=== PATIENT | female | born 1980 ===

== ENCOUNTER 2016-06-07 17:26 | Emergency (ER) | payer OTHER ==
--- NOTE | 2016-06-14 17:50 | ER ---
ADMIT: 06/07/2016 RM/LOC: ER [facility] MR#: [id number] [address] [id number] FOSTER WATSON [address] [place] [id number] Emergency Room Report SEX: F AGE: 35 : 1980 DATE: 06/07/2016 ADDENDUM: This patient comes into the ER because she is having pain on the left side of her abdomen. She is in her first trimester. She has been nauseated and vomiting. The pain started on the left side today, so she comes into the ER. She is unsure if the vomiting is caused by the pain in the left side or if it is due to having morning sickness. On physical exam, she is tender in the left lower quadrant. Bimanual exam was really negative for pain in the left adnexa and no masses palpated. Urinalysis had +2 ketones. We were unable to auscultate heart tones, but her beta quant was 66,000. Her urinalysis was negative for infection. Her ultrasound showed a 7 mm left ovarian cyst, and an IUP at 9 weeks and 2 days. She was given Tylenol and a liter of normal saline that was later repeated and Zofran. She is to follow up with Dr. Olguin tomorrow if not feeling better. Please see my T-sheet. JUSTICE Mckeon / Taiwo Lovell MD / yancyl JOB #: [id number] CC: Taiwo Lovell MD, Attending Physician Cassandra Olguin MD, Family Physician
[2017-01-05] MEDS ORDERED: COLACE-DPS100 MG PO (10:55)
[2017-01-05] MEDS ORDERED: PRENATAL VITAM1 EAC9 PO (10:55)
[2017-01-05] MEDS ORDERED: MOTRIN-DPS800 MG PO (10:55)
[2017-01-05] MEDS ORDERED: PERCOCET 5-3251 EACH PO (10:55)
[2017-01-05] MEDS ORDERED: NIPPLECREAM TP (10:56)
== END 2016-06-07 20:12 | disposition home or self-care (01) ==
LOC: ER 17:26
DX: O34.81 Maternal care for other abnormalities of pelvic organs, first trimester (principal); N83.202 Unspecified ovarian cyst, left side; Z3A.09 9 weeks gestation of pregnancy